=== PATIENT | male | born 1965 | race Hispanic/Latino ===

== ENCOUNTER 2018-02-14 12:02 | Inpatient (IN) | payer MEDICAID ==
[2018-02-14 12:03] VITALS: BMI 56.9
--- NOTE | 2018-02-14 12:36 | ED PDOC ---
Arrival/HPI - General Chief Complaint: Psychiatric Evaluation Time Seen by Provider: 02/14/18 12:07 Historian: Patient - History of Present Illness Narrative History of Present Illness (Text): 02/14/18 12:34 Patient is a 52 year old male, with past medical history of hypertension and COPD, presents to the Emergency department from [facility] for psychiatric admission today. Patient reportedly presented to [facility] yesterday stating he "didn't wanna live anymore" and has been thinking about jumping off the balcony of his [address] apartment. Patient currently denies any somatic complaints. Patient denies any fever, chills, nausea, vomiting, diarrhea, abdominal pain, headache, chest pain, shortness of breath, tremors, tingling or any other complaints. Patient presents to the Emergency department for admission to the psychiatrist's service was accepted by psychiatry service. 02/14/18 18:42 Time/Duration: Prior to Arrival Symptom Onset: Gradual Symptom Course: Unchanged Activities at Onset: Light Context: Other ([facility]) Past Medical History - Provider Review Nursing Documentation Reviewed: Yes - Infectious Disease Hx of Infectious Diseases: None - Cardiac Hx Hypertension: Yes - Pulmonary Hx Respiratory Disorders: Yes Hx Chronic Obstructive Pulmonary Disease (COPD): Yes - Neurological Hx Neurological Disorder: No HX Cerebrovascular Accident: No Hx Seizures: No - HEENT Hx HEENT Disorder: Yes Other/Comment: [place] both ears. wears glasses - Renal Hx Renal Disorder: No - Endocrine/Metabolic Hx Endocrine Disorders: No - Hematological/Oncological Hx Blood Disorders: No Hx Cancer: No - Integumentary Hx Dermatological Disorder: No - Musculoskeletal/Rheumatological Hx Musculoskeletal Disorders: Yes Hx Arthritis: Yes - Gastrointestinal Hx Gastrointestinal Disorders: Yes Hx Bowel Surgery: Yes Hx Gastritis: Yes Other/Comment: hernia repair - Genitourinary/Gynecological Hx Genitourinary Disorders: No Hx Sexually Transmitted Diseases: No - Psychiatric Hx Depression: Yes Hx Emotional Abuse: No Hx Physical Abuse: No Hx Sexual Abuse: No Hx Substance Use: No - Surgical History Other/Comment: shoulder surgery - Anesthesia Hx Anesthesia: Yes Hx Anesthesia Reactions: No - Suicidal Assessment Feels Threatened In Home Enviroment: No Family/Social History - Physician Review Nursing Documentation Reviewed: Yes Family/Social History: No Known Family HX Smoking Status: Current Some Days Smoker Hx Alcohol Use: Yes Frequency of alcohol use: Socially Hx Substance Use: No Substance used: Marijuana and 1/4 bag heroin a few days ago Allergies/Home Meds Allergies/Adverse Reactions: Allergies mayonnaise Allergy (Uncoded 01/31/18 17:02) SHORTNESS OF BREATH Review of Systems - Review of Systems Constitutional: absent: Fevers Eyes: absent: Vision Changes Respiratory: absent: SOB Cardiovascular: absent: Chest Pain Gastrointestinal: absent: Abdominal Pain, Diarrhea, Nausea, Vomiting Musculoskeletal: Back Pain (states chronic) Skin: absent: Rash Neurological: absent: Headache, Dizziness, Focal Weakness, Other (No tremors or tingling) Endocrine: absent: Polyuria Psychiatric: Depression, Suicidal Ideation. absent: Anxiety Physical Exam - Physical Exam Narrative Physical Exam (Text): 02/14/18 12:42 Head: Atraumatic. Normocephalic. Eyes: PERRL. EOMI. Conjunctivae are not pale. ENT: Mucous membranes are moist and intact. Neck: Supple. Full ROM. No meningeal signs. Cardiovascular: Regular rate. Regular rhythm. Pulmonary/Chest: No evidence of respiratory distress. Clear to auscultation bilaterally. Abdominal: Soft and non-distended. There is no tenderness. Back: No CVA tenderness. Mild paraspinal lumbar tenderness, no focal edema or erythema. Extremities: No edema. No cyanosis. No clubbing. Full range of motion in all extremities. No calf tenderness. Skin: Skin is warm and dry. No petechiae. No purpura. Neurological: Alert, awake, and oriented to person, place, time, and situation. Normal speech. No motor or sensory deficits. No facial droop. No nuchal rigidity. Psychiatric: Good eye contact. Reports depression and had expressed suicidal ideation. 02/14/18 18:44 Vital Signs Reviewed: Yes Vital Signs Temp Pulse Resp BP Pulse Ox 02/14/18 12:48 75 19 125/52 L 99 02/14/18 12:42 98 F Temperature: Afebrile Pulse: Regular Appearance: Positive for: Well-Appearing, Non-Toxic, Comfortable Mental Status: Positive for: Alert and Oriented X 3 Medical Decision Making ED Course and Treatment: 02/14/18 12:43 Impression: 52 year old male presents to the Emergency department for psychiatric admission. Plan: -- Reassess and disposition Prior Visits: Notes and results from previous visits were reviewed. Progress Notes: 02/14/18 12:43 Upon arrival to the Emergency department, patient's medical record was reviewed. Patient was medically cleared at [facility] Patient is currently calm and cooperative with no focal neurological deficits. Patient denies any headache, chest pain, shortness of breath, tremors, and is neurologically intact with no acute pain or discomfort. Patient admitted to [facility]. 02/14/18 18:45 - Medication Orders Current Medication Orders: Acetaminophen (Tylenol 325mg Tab) 650 mg PO Q6H PRN PRN Reason: Pain, moderate (4-7) Bupropion HCl (Wellbutrin Sr 150 Mg) 150 mg PO DAILY [facility] Last Admin: 02/14/18 13:50 Dose: 150 mg Gabapentin (Neurontin) 200 mg PO TID GRUPO PRN Reason: Protocol Last Admin: 02/14/18 18:15 Dose: 200 mg Lorazepam (Ativan) 1 mg PO AMHS PRN; Protocol PRN Reason: Anxiety Metoprolol Succinate (Toprol Xl) 25 mg PO BRK [facility] Last Admin: 02/14/18 13:50 Dose: 25 mg Multi-Ingredient Ointment (Prep-Hem) 1 ea TOP DAILY PRN PRN Reason: rectal itch Trazodone HCl (Desyrel) 50 mg PO HS PRN PRN Reason: Insomnia Discontinued Medications Lorazepam (Ativan) 1 mg PO ONCE ONE PRN Reason: Protocol Stop: 02/14/18 13:41 Last Admin: 02/14/18 14:02 Dose: 1 mg - Yoanibe Statement The provider has reviewed the documentation as recorded by the Jose Villalpando. All medical record entries made by the Jose were at my direction and personally dictated by me. I have reviewed the chart and agree that the record accurately reflects my personal performance of the history, physical exam, medical decision making, and the department course for this patient. I have also personally directed, reviewed, and agree with the discharge instructions and disposition. Disposition/Present on Arrival - Present on Arrival Any Indicators Present on Arrival: No History of DVT/PE: No History of Uncontrolled Diabetes: No Urinary Catheter: No History of Decub. Ulcer: No History Surgical Site Infection Following: None - Disposition Have Diagnosis and Disposition been Completed?: Yes Diagnosis: Depression Disposition: HOSPITALIZED Disposition Time: 13:10 Patient Plan: Admission Condition: FAIR
[2018-02-14] MEDS ORDERED: Hemorrohoidal Ointment (2 oz) TOP PRN (13:45)
[2018-02-14] MEDS: Metoprolol Succinate 25 mg XL Tab PO SCH (13:50)
[2018-02-14] MEDS: buPROPion SR 150 MG TABLET PO SCH (13:50)
--- NOTE | 2018-02-14 16:35 | PCM.BM ---
<RichardAntony - Last Filed: 02/14/18 16:25> Treatment Plan Problems - Problems identified on initial assessmt RISK FOR SUICIDE Date Initiated: 02/14/18 Time Initiated: 15:00 Assessment reference: HP, NA, Other Status: Active INEFFECTUVE COPING Date Initiated: 02/14/18 Time Initiated: 16:36 Assessment reference: HP, NA, Other Status: Active MEDS NONADHERENCE Date Initiated: 02/14/18 Time Initiated: 16:37 Assessment reference: HP, NA, Other Treatment assets and liabiliti Patient Assests: adapts well, cooperative, resourceful, ADL independent, negotiates basic needs, cognitively intact Patient Liabilities: substance abuse, medical problems - Milieu Protocol Maintain good personal hygiene: daily Encourage regular showers, daily Remind patient to perform daily oral care, daily Assist patient to perform ADL's Maintain personal safety: daily Educate patient to report safety concerns to staff, daily Monitor environment for contraband/sharps Medication safety: Monitor for expected outcome, potential side effects: daily, Assess barriers to learning: daily, Assess readiness for medication education: daily Discharge/Continuing Care - Education Needs Education Needs: Patient Medication, Patient Diagnosis/Disease Process, Patient Coping Skills, Patient Activities of Daily Living, Patient Uses of Medical Equipment, Patient Health Practices/Safety - Discharge Discharge Criteria: Free of Suicidal thoughts, Free of Homicidal thoughts, Free of paranoid thoughts, Normal sleep pattern Discharge to:: Home <Herbert Gallardo - Last Filed: 02/15/18 10:54> - Diagnosis (1) Depression Status: Acute Interventions: group, milieu and supportive tx * Wellbutrin SR 150 mg po daily for depression * Trazodone 100 mg po HS for depression and off-label for insomnia 02/15/18 10:54 (2) Opioid use disorder, severe, dependence Status: Acute Interventions: group, milieu and supportive tx * Wellbutrin SR 150 mg po daily for depression * Trazodone 100 mg po HS for depression and off-label for insomnia 02/15/18 10:54 <Tea Hall - Last Filed: 02/16/18 16:25> Family Contact Family involvement: Famliy/SO not involved
--- NOTE | 2018-02-14 21:01 | PN ---
DATE: 02/14/2018 SUBJECTIVE: I was called to the Psychiatric floor for medical consult. This is a 52-year-old white male who presents to the emergency room stating that he does not want to live anymore. He was thinking about [facility]. He is very stressed. He is very worried. He barely could have a conversation with me. PAST MEDICAL HISTORY: Hypertension, COPD, arthritis. He has had gastritis. He has hernia surgery. He had bowel surgery, shoulder surgery. FAMILY HISTORY: No known family history. SOCIAL HISTORY: He still smokes cigarettes. Still does alcohol. He smokes marijuana and heroin most days. ALLERGIES: HE GIVES ALLERGIES TO [place]. REVIEW OF SYSTEMS: He is quite upset, shakenly looking at me. He is quite nervous. No short of breath or chest pain. No abdominal pain, diarrhea, nausea, or vomiting. No problems urinating. No skin issues. No headache. Very worried, very sad, very depressed. PHYSICAL EXAMINATION: VITAL SIGNS: He has 98 temperature, 85 pulse, 121/82 blood pressure, 19 respiratory rate, and he has a 98% O2 sat on room air. HEENT: Head: Atraumatic, normocephalic. Extraocular muscles are intact. Pupils are equal and reactive to light. Throat is moist. NECK: Supple. No JVD. HEART: Regular rate. LUNGS: Decreased breath sounds, but clear to auscultation. ABDOMEN: Soft, nontender. Positive bowel sounds. No guarding, no rebound. No CVA tenderness. EXTREMITIES: No edema. Fair range of motion. SKIN: For the most part is warm and dry. No apparent rashes or ulcers. NEUROLOGICAL: Alert, oriented, very anxious. Bad eye contact. Very worried, nervous behavior. Seems very upset. Difficult for him to talk to me. LABORATORY DATA: He had no lab tests done. I will order some lab tests once he will be fine. MEDICATIONS: He is on multiple meds, Ativan, Desyrel, Neurontin, Toprol, Wellbutrin, and Tylenol. ASSESSMENT AND PLAN: We will keep a close eye on him. We will check his labs and see if he has suicidal ideation, drug abuse, hypertension, chronic obstructive pulmonary disease. Nima Mckeon DO [facility] # [id number] LIZ
[2018-02-15 07:12] LABS: HEMOGLOBIN 14.8 g/dL (14.0-18.0); MEAN CORPUSCULAR HGB CONC 35.6 g/dl (31.0-37.0); RBC 4.78 10^6/uL (3.5-6.1); RED CELL DISTRIBUTION WIDTH 13.2 % (11.5-14.5); WHITE BLOOD COUNT 10.2 10^3/ul (4.5-11.0)
[2018-02-15] MEDS: Metoprolol Succinate 25 mg XL Tab PO SCH (07:16)
[2018-02-15 07:22] LABS: ALB/GLOB RATIO 1.3 (1.1-1.8); ALBUMIN 4.5 g/dL (3.0-4.8); ALT/SGPT 32 U/L (7-56); AST/SGOT 22 U/L (17-59); BLOOD UREA NITROGEN 19 mg/dL (7-21); CALCIUM 9.7 mg/dL (8.4-10.5); GFR AFRICAN-AMERICAN > 60; GFR NON-AFRICAN AMERICAN > 60; GLUCOSE,FASTING 102 mg/dL (65-110); HDL CHOLESTEROL 30 mg/dL (29-60)
[2018-02-15 07:32] LABS: LDL CHOLESTEROL 109 mg/dL (0-129)
[2018-02-15 07:42] LABS: FREE T4 1.44 ng/dL (0.78-2.19)
[2018-02-15] MEDS: buPROPion SR 150 MG TABLET PO SCH (08:46)
--- NOTE | 2018-02-15 10:53 | PCM.PSYCH ---
Initial Psychiatric Evaluation - Initial Psychiatric Evaluation Type of Admission: Voluntary History of Present Illness and Precipitating Events: Patient is 52-year-old single male with a psychiatric history of Depression, Opiate dependency, MJA use, multiple admissions-most recently at [facility] 01/31/18-02/06/18, multiple suicide attempts vs gestures, noncompliance with outpatient treatment and medications who was BIB EMS to [facility] due to reported depression and wishes in context of ongoing opiate use and continued grief over his mother's in Fall 2015. Patient reportedly had thoughts of jumping off his balcony, roof or bridge. Patient has been in good behavioral control since transfer to [facility] yesterday, 02/14/18. I met with him at bedside this morning. He appears fairly groomed and related. Oriented x3. Reports ongoing symptoms of low mood and energy, anhedonia, hopelessness, poor sleep and appetite since discharge from [facility] a week ago. Endorses visual hallucinations of seeing his mother. Patient indicates that he is no longer suicidal. There have been no behavioral issues over the weekend. PSYCHIATRIC HISTORY Patient reports at least 10 prior admissions, most recently at [facility] 01/31/18-02/06/18. Patient was not compliant with discharge medications of Wellbutrin SR 150 mg po daily and Trazodone 200 mg po HS. Patient was given diagnosis of Major Depressive Disorder, r/o Substance Induced Mood Disorder; Opioid Use Disorder; Cannabis Use Disorder Patient reports a history of "many" suicide attempts vs gestures. Most recently wanted to jump off his roof "where 15 people have already committed suicide". Prior medication trial of Effexor, this medication gave him headaches. SOCIAL HISTORY Born and raised in [place]. Single. No children. Resides with his sister. Graduated high school. 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 Addicted to opiates >11 years. Started using intranasal heroin x2 years ago after his mother in Fall 2015. Continues to use opiates however he is not forthcoming about his current use. Patient also smokes MJA to help with pain. He smokes half pack of tobacco daily. He was apprised of the morbidity and mortality risks of continued tobacco use. Deferred on nicotine patch when offered to him. Patient hasn't had alcohol in over 20 years. Current Medications: Active Medications Generic Name Dose Route Start Last Admin Trade Name Freq PRN Reason Stop Dose Admin Acetaminophen 650 mg 02/14/18 14:36 02/15/18 04:59 Tylenol 325mg Tab PO 650 mg Q6H PRN Administration Pain, moderate (4-7) Bupropion HCl 150 mg 02/14/18 13:45 02/14/18 13:50 Wellbutrin Sr 150 Mg PO 150 mg DAILY GRUPO Administration Gabapentin 200 mg 02/14/18 18:00 02/14/18 18:15 Neurontin PO 200 mg TID GRUPO Administration Protocol Lorazepam 1 mg 02/14/18 13:38 Ativan PO AMHS PRN Anxiety Protocol Metoprolol Succinate 25 mg 02/14/18 13:45 02/14/18 13:50 Toprol Xl PO 25 mg BRK GRUPO Administration Multi-Ingredient Ointment 1 ea 02/14/18 13:45 Prep-Hem TOP DAILY PRN rectal itch Trazodone HCl 50 mg 02/14/18 13:41 Desyrel PO HS PRN Insomnia Past Psychiatric History - Past Psychiatric History Pertinent Medical Hx (Current Medical&Sleep Prob, Allergies): Allergies Allergy/AdvReac Type Severity Reaction Status Date / Time [facility] Allergy SHORTNESS Uncoded 01/31/18 17:02 OF BREATH Gabapentin [Neurontin] 400 mg PO TID #90 cap 02/06/18 Metoprolol Succinate XL [Toprol XL] 25 mg PO QPM #30 tab 02/06/18 Phenylephrine [Preparation H Suppositories] 1 supp MO BID sup 02/06/18 buPROPion SR [Wellbutrin SR 150 MG] 150 mg PO DAILY #30 tab 02/06/18 hydrALAZINE [Apresoline] 25 mg PO Q12 #60 tab 02/06/18 traZODone [Desyrel] 200 mg PO HS #60 tab 02/06/18 DSM 5 DX - DSM 5 DSM 5 Diagnosis: Major Depression Opiate Dependency, Substance induced mood disorder MJA abuse - Recommended/Plan of Treatment Treatment Recommendations and Plan of Treatment: * group, milieu and supportive tx * Wellbutrin SR 150 mg po daily for depression * Trazodone 100 mg po HS for depression and off-label for insomnia * Ativan 1 mg AMHS prn: anxiety * Appreciate f/u by Dr. Mckeon on 02/14/18 * Vitals reviewed and noted below: 02/14/18 02/14/18 02/15/18 12:52 16:00 07:13 Temperature 98 F Pulse Rate 85 67 69 Respiratory 19 22 Rate Blood Pressure 121/82 139/100 H 137/103 H 02/15/18 07:16 Temperature Pulse Rate 69 Respiratory Rate Blood Pressure 137/103 H Summarized lab results from [facility] 02/13/18 WBC 11.3 HGB/HCT 13.7L/40.5L PLT 332 CHEM 14 WNL BAL <10 UDS +THC, +OPIATES - Smoking Cessation Smoking Cessation Initiated: Yes Reason for not providing: Patient deferred
[2018-02-15] MEDS: Lidocaine 5% Patch TD SCH (15:29)
[2018-02-16] MEDS: Lidocaine 5% Patch TD SCH (08:19)
[2018-02-16] MEDS: Metoprolol Succinate 25 mg XL Tab PO SCH (08:19)
[2018-02-16] MEDS: buPROPion SR 150 MG TABLET PO SCH (08:19)
--- NOTE | 2018-02-16 09:20 | PN ---
DATE: 02/15/2018 SUBJECTIVE: I saw him this morning. He is walking. He is having low back pain. He is doing a little bit better with his anxiety and his suicidal thoughts. MEDICATIONS: He is on Ativan; Desyrel; Lidoderm patch, now I added that to his low back pain; Neurontin; hemorrhoidal cream; metoprolol; Tylenol and BuSpar. PHYSICAL EXAMINATION VITAL SIGNS: He has a 98 temperature; 69 pulse; 137/103 blood pressure, I am going to put him on blood pressure meds, 22 respiratory rate; 98% O2 sat on room air. HEENT: His head is atraumatic, normocephalic. HEART: Regular rate. LUNGS: Decreased breath sounds, but clear. ABDOMEN: Soft, nontender. EXTREMITIES: No edema. LABORATORY DATA: He has a 10.2 white count, hemoglobin, 41.6 hematocrit with a 347 platelets. Sodium 143, potassium of 4.6, BUN 90, creatinine 8.9, GFR is greater than 60, sugar is 102, calcium is 9.7, total bilirubin is 0.5, AST is 22, ALT is 32, alkaline phosphatase 90, total protein 7.9, triglycerides of 102, cholesterol is 164. TSH is 0.24, I will repeat that tomorrow, could be stress related. I am going to add a blood pressure pill and a TSH for tomorrow. I encouraged him to participate in groups, take his medications as per Psychiatry and as per their adjustment and hopefully, his back better. Nima Mckeon DO [facility]
--- NOTE | 2018-02-16 11:54 | PN ---
DATE: 02/16/2018 SUBJECTIVE: I saw him in the chair in a TV room. He is very upset this morning. He is not sleeping well at all. He states he is going to sleep with Xanax, but I am not giving to him, we are giving him other things. He is very upset about that. He wants the Xanax at nighttime. His medication list consists of Ativan at nighttime, I added Catapres for his blood pressure, Desyrel, Lidoderm patch for his back pain, Neurontin and Norvasc for blood pressure, hemorrhoidal cream, Toprol for blood pressure, Tylenol, Vistaril and Wellbutrin. He is very upset this morning; over and over again, he is telling me he needs Xanax. PHYSICAL EXAMINATION: VITAL SIGNS: He has 98 temperature; 65 pulse; blood pressures have been 139/100, 137/103 and 153/99, I added clonidine; respiratory rate 22; 98% O2 sat on room air. HEENT: Head is atraumatic, normocephalic. HEART: Regular rate. LUNGS: Decreased breath sounds, but clear. ABDOMEN: Soft. EXTREMITIES: No edema. LABORATORY DATA: He has a 10.2 white count, 14.8 hemoglobin, 347 platelets yesterday. Sodium 143, potassium 4.6, BUN 19, creatinine 0.7, GFR is greater than 60, sugar is 102, AST is 22, ALT is 32, alkaline phosphatase 90. TSH went up to 0.4, a little bit better. I still think it is a stress reaction. I will do another TSH tomorrow for his regular blood test. I added clonidine to his Norvasc, I hope he gets a usama sleep tonight. Maybe Psych can change his Ativan to Xanax which he desperately wants and is very angry about it as per Psychiatry. We are medicines for his blood pressure. Nima Mckeon DO MTDD
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
[2018-02-17 06:26] LABS: HEMOGLOBIN 13.3 g/dL (14.0-18.0); MEAN CORPUSCULAR HEMOGLOBIN 30.1 pg (25.0-35.0); MEAN CORPUSCULAR HGB CONC 34.2 g/dl (31.0-37.0); MEAN PLATELET VOLUME 10.1 fl (7.0-11.0); RBC 4.42 10^6/uL (3.5-6.1); RED CELL DISTRIBUTION WIDTH 13.3 % (11.5-14.5); WHITE BLOOD COUNT 13.9 10^3/ul (4.5-11.0)
[2018-02-17 06:53] LABS: ALB/GLOB RATIO 1.3 (1.1-1.8); ALBUMIN 3.9 g/dL (3.0-4.8); ALT/SGPT 29 U/L (7-56); AST/SGOT 20 U/L (17-59); BLOOD UREA NITROGEN 26 mg/dL (7-21); CALCIUM 9.6 mg/dL (8.4-10.5); GFR AFRICAN-AMERICAN > 60; GFR NON-AFRICAN AMERICAN > 60
[2018-02-17] MEDS: Lidocaine 5% Patch TD SCH (09:14)
[2018-02-17] MEDS: Metoprolol Succinate 25 mg XL Tab PO SCH (09:14)
[2018-02-17] MEDS: buPROPion SR 150 MG TABLET PO SCH (09:15)
--- NOTE | 2018-02-17 09:41 | PN ---
DATE: 02/17/2018 SUBJECTIVE: He is very upset this morning. He is on Xanax and he wants Ativan and he is very upset about that. He states he has lots of complaints against us. PHYSICAL EXAMINATION: VITAL SIGNS: He has 97.2 temp, 60 pulse, 118/81 blood pressure, 20 respiratory rate. HEENT: His head is atraumatic, normocephalic. HEART: Regular rate. LUNGS: Decreased breath sounds, but clear. ABDOMEN: Soft. EXTREMITIES: No edema. LABORATORY DATA: He has a 13.9 white count and went up, 13.3 hemoglobin, 38.9 hematocrit with 278 platelets. Sodium 145, potassium of 4.5, BUN 26, creatinine 0.8. GFR is greater than 60, sugar is 97, calcium is 9.6, total bili is 0.2, AST 20, ALT is 29, alkaline phosphatase 75. The TSH go back to normal, it is 0.69. We will repeat a CBC tomorrow to watch his white count. I will roll changer his Xanax to Ativan at low dose, see if that might make him less angry. We are also going to do a urinalysis on him to make sure we are not missing any infection. We will watch him closely. He is here for suicidal ideation, COPD, IV drug abuse, back pain. Nima Mckeon DO MTDD
--- NOTE | 2018-02-17 15:22 | PCM.PYCHPN ---
Psychiatric Progress Note - Psychiatric Progress Note Patient seen today, length of contact: 30 minutes Patient Chief Complaint: "I am annoyed" Problems Identified/Issues Discussed: Suicide/ homicide prevention, past psychiatric h/o, current psychiatric symptoms , medical problems, risk/benefits and alternatives of medications, medications compliance, coping strategies, substance abuse h/o, relapse prevention, importance of follow up with psychiatrist and therapist, discharge plan. Medical Problems: HNT, chronic back pain Diagnostic Results: 02/15/18 06:30 02/15/18 06:30 Lab Results 02/16/18 07:00: TSH 3rd Generation 0.41 L 02/15/18 06:30: WBC 10.2, RBC 4.78, Hgb 14.8, Hct 41.6 L, MCV 87.0, MCH 31.0, MCHC 35.6, RDW 13.2, Plt Count 347, MPV 10.0 02/15/18 06:30: RPR Nonreactive 02/15/18 06:30: Free T4 1.44, TSH 3rd Generation 0.24 L 02/15/18 06:30: Sodium 143, Potassium 4.6, Chloride 106, Carbon Dioxide 24, Anion Gap 17, BUN 19, Creatinine 0.7 L, Est GFR ( Amer) > 60, Est GFR ( Non-Af Amer) > 60, Random Glucose 102, Fasting Glucose 102, Calcium 9.7, Total Bilirubin 0.5, AST 22, ALT 32, Alkaline Phosphatase 90, Total Protein 7.9, Albumin 4.5, Globulin 3.4, Albumin/Globulin Ratio 1.3, Triglycerides 102, Cholesterol 164, LDL Cholesterol Direct 109, HDL Cholesterol 30 Vital Signs Temp Pulse Resp BP Pulse Ox 02/16/18 08:49 65 153/99 H 02/16/18 08:19 65 153/99 H 02/16/18 08:17 65 153/99 H 02/15/18 16:00 65 153/99 H 02/15/18 07:16 69 137/103 H 02/15/18 07:13 69 22 137/103 H 02/14/18 16:00 67 139/100 H 02/14/18 12:52 98 F 85 19 121/82 98 02/14/18 12:48 75 19 125/52 L 99 02/14/18 12:42 98 F DSM 5 Symptoms Update: Patient is 52-year-old single male with a psychiatric history of Depression, Opiate dependency, MJA use, multiple admissions-most recently at [facility] 01/31/18-02/06/18, multiple suicide attempts vs gestures, noncompliance with outpatient treatment and medications who was BIB EMS to [facility] due to reported depression and wishes in context of ongoing opiate use and continued grief over his mother's in Fall 2015. Patient reportedly had thoughts of jumping off his balcony, roof or bridge. as per report from the staff patient has been in good behavioral control since transfer to [facility] 02/14/18. pt was seen at the treatment team meeting room today, as per staff pt was agitated, was threatening, was disrespectful. at the same time no physical aggression. acceptable personal hygiene, pt is mancia and irritable, reported poor sleep but good appetite. h/o Opioid Use Disorder; Cannabis Use Disorder, but denied using recently, but admitted to smoke marijuana. as per staff pt was compliant with the medications. Impression: DSM 5 Diagnosis: Major Depression Opiate Dependency, Substance induced mood disorder MJA abuse Medication Change: Yes (Xanax 3 times a day as needed) Medical Record Reviewed: Yes Mental Status Examination - Cognitive Function Orientation: Person Memory: Intact Attention: Poor Concentration: Poor Association: WNL Fund of Knowledge: Poor (baseline) - Mood Mood: Depressed, Anxious - Affect Affect: Constricted - Formal Thought Process Formal Thought Process: No Impairment - Suicidal Ideation Suicidal Ideation: No - Homicidal Ideation Homicidal Ideation: No Goal/Treatment Plan - Goal/Treatment Plan Need for Continued Stay: Remain at risks for inpatient hospitalization, Severe depression anxiety, Discharge may exacerbated symptoms, Severe functional impairment Progress Toward Problem(s) and Goals/Treatment Plan: Milieu/structure/supportive therapy Medical consult appreciated, see medical team note for more detailed info SW consultation for discharge plan and social issues wellbutrin xanax started trazodone d/c remeron started Family involvement Follow up on labs Will monitor closely Pt was educated about risk/benefits and alternatives of medications, coping strategies (safety plan, suicide prevention), relapse prevention, importance of follow up with psychiatrist and therapist, stay away from drugs/alcohol/smoking Estimated Date of D/C: 02/20/18
[2018-02-18 07:55] LABS: HEMOGLOBIN 13.4 g/dL (14.0-18.0); MEAN CELL VOLUME 88.5 fl (80.0-105.0); MEAN CORPUSCULAR HEMOGLOBIN 30.8 pg (25.0-35.0); MEAN CORPUSCULAR HGB CONC 34.8 g/dl (31.0-37.0); MEAN PLATELET VOLUME 10.1 fl (7.0-11.0); RBC 4.35 10^6/uL (3.5-6.1); RED CELL DISTRIBUTION WIDTH 13.2 % (11.5-14.5)
[2018-02-18 08:09] LABS: ALB/GLOB RATIO 1.3 (1.1-1.8); ALT/SGPT 26 U/L (7-56); AST/SGOT 20 U/L (17-59); BLOOD UREA NITROGEN 23 mg/dL (7-21); CALCIUM 9.6 mg/dL (8.4-10.5); GFR AFRICAN-AMERICAN > 60; GFR NON-AFRICAN AMERICAN > 60
[2018-02-18] MEDS: Metoprolol Succinate 25 mg XL Tab PO SCH (08:11)
[2018-02-18] MEDS: Lidocaine 5% Patch TD SCH (08:12)
[2018-02-18] MEDS: buPROPion SR 150 MG TABLET PO SCH (08:12)
--- NOTE | 2018-02-18 09:47 | PN ---
DATE: 02/18/2018 SUBJECTIVE: Yesterday when I saw him, he was very upset that he was on Xanax and wanted Ativan to the point where he was angry and mean. I have changed him to Ativan, discussed it with the psychiatrist this morning. It was all about the Xanax and I will see if he is back on the Xanax. He is comfortable in bed, slept well. He is on Catapres, Lidoderm, Neurontin, Norvasc, , Remeron, Toprol, Tylenol, Zestril, Wellbutrin and now back on Xanax. OBJECTIVE: VITAL SIGNS: Temperature 97.8, 65 pulse, 117/78 blood pressure, 20 respiratory rate. HEENT: Head is atraumatic, normocephalic. HEART: Regular rate. LUNGS: Decreased breath sounds, but clear. ABDOMEN: Soft. EXTREMITIES: No edema. DATA: Last labs from today; 11 white count and normal, 13.4 hemoglobin, 38.5 hematocrit with 278 platelets. Sodium 145, potassium 4.5, BUN 23, creatinine 0.8. GFR is greater than 60. Sugar is 93. Calcium is 9.6, total bili is 0.4, AST 20, ALT is 26, alkaline phosphatase 78, total protein 7.2. His TSH is now normal at 0.69. Continue aggressive treatment as per Psychiatry. Medically, I think he is coming around. Continue to adjust and manage his medications. We will follow. This is a patient who has got diabetes, hypertension, COPD. He did have accelerated hypertension, IV drug abuse, high white count, back pain. He was suicidal when he came in. Nima Mckeon DO MTDAudrey
--- NOTE | 2018-02-18 15:08 | PCM.PYCHPN ---
Psychiatric Progress Note - Psychiatric Progress Note Patient seen today, length of contact: 30 minutes Patient Chief Complaint: "I am just depressed, it is a holiday time, my mom used to decorate our house, I am very depressed, at times I could hear her voice, I think it is just memories" Problems Identified/Issues Discussed: Suicide/ homicide prevention, past psychiatric h/o, current psychiatric symptoms , medical problems, risk/benefits and alternatives of medications, medications compliance, coping strategies, substance abuse h/o, relapse prevention, importance of follow up with psychiatrist and therapist, discharge plan. Medical Problems: HNT, chronic back pain Diagnostic Results: 02/15/18 06:30 02/15/18 06:30 Lab Results 02/16/18 07:00: TSH 3rd Generation 0.41 L 02/15/18 06:30: WBC 10.2, RBC 4.78, Hgb 14.8, Hct 41.6 L, MCV 87.0, MCH 31.0, MCHC 35.6, RDW 13.2, Plt Count 347, MPV 10.0 02/15/18 06:30: RPR Nonreactive 02/15/18 06:30: Free T4 1.44, TSH 3rd Generation 0.24 L 02/15/18 06:30: Sodium 143, Potassium 4.6, Chloride 106, Carbon Dioxide 24, Anion Gap 17, BUN 19, Creatinine 0.7 L, Est GFR ( Amer) > 60, Est GFR ( Non-Af Amer) > 60, Random Glucose 102, Fasting Glucose 102, Calcium 9.7, Total Bilirubin 0.5, AST 22, ALT 32, Alkaline Phosphatase 90, Total Protein 7.9, Albumin 4.5, Globulin 3.4, Albumin/Globulin Ratio 1.3, Triglycerides 102, Cholesterol 164, LDL Cholesterol Direct 109, HDL Cholesterol 30 Vital Signs Temp Pulse Resp BP Pulse Ox 02/16/18 08:49 65 153/99 H 02/16/18 08:19 65 153/99 H 02/16/18 08:17 65 153/99 H 02/15/18 16:00 65 153/99 H 02/15/18 07:16 69 137/103 H 02/15/18 07:13 69 22 137/103 H 02/14/18 16:00 67 139/100 H 02/14/18 12:52 98 F 85 19 121/82 98 02/14/18 12:48 75 19 125/52 L 99 02/14/18 12:42 98 F DSM 5 Symptoms Update: Patient is 52-year-old single male with a psychiatric history of Depression, Opiate dependency, MJA use, multiple admissions-most recently at [facility] 01/31/18-02/06/18, multiple suicide attempts vs gestures, noncompliance with outpatient treatment and medications who was BIB EMS to [facility] due to reported depression and wishes in context of ongoing opiate use and continued grief over his mother's in Fall 2015. Patient reportedly had thoughts of jumping off his balcony, roof or bridge. as per report from the staff patient has been in good behavioral control since transfer to [facility], at times annoyed and disrespectful, but no agitation or aggression. pt was seen at the day treatment area, pt appeared to be depressed, flat affect , reported to fell depressed, hopeless, passive wish to be , and "be with my mom", pt said at the holiday season he would feel this way. at the same time pt said his anxiety is "better, I am calmer". acceptable personal hygiene, pt is mancia and irritable, reported seep and appetite "better" h/o Opioid Use Disorder; Cannabis Use Disorder, but denied using recently, but admitted to smoke marijuana. as per staff pt was compliant with the medications. Impression: DSM 5 Diagnosis: Major Depression Opiate Dependency, Substance induced mood disorder MJA abuse Medication Change: Yes (Xanax 3 times a day as needed) Medical Record Reviewed: Yes Mental Status Examination - Cognitive Function Orientation: Person Memory: Intact Attention: Poor Concentration: Poor Association: WNL Fund of Knowledge: Poor (baseline) - Mood Mood: Depressed, Anxious - Affect Affect: Constricted - Formal Thought Process Formal Thought Process: No Impairment - Suicidal Ideation Suicidal Ideation: No - Homicidal Ideation Homicidal Ideation: No Goal/Treatment Plan - Goal/Treatment Plan Need for Continued Stay: Remain at risks for inpatient hospitalization, Severe depression anxiety, Discharge may exacerbated symptoms, Severe functional impairment Progress Toward Problem(s) and Goals/Treatment Plan: Milieu/structure/supportive therapy Medical consult appreciated, see medical team note for more detailed info SW consultation for discharge plan and social issues wellbutrin increased xanax will be continued remeron started Family involvement Follow up on labs Will monitor closely Pt was educated about risk/benefits and alternatives of medications, coping strategies (safety plan, suicide prevention), relapse prevention, importance of follow up with psychiatrist and therapist, stay away from drugs/alcohol/smoking Estimated Date of D/C: 02/20/18
[2018-02-19] MEDS: Lidocaine 5% Patch TD SCH (08:31)
[2018-02-19] MEDS: buPROPion SR 150 MG TABLET PO SCH (08:33)
[2018-02-19] MEDS: Metoprolol Succinate 25 mg XL Tab PO SCH (08:34)
[2018-02-19 12:40] LABS: URINE BILIRUBIN NEGATIVE (NEGATIVE); URINE BLOOD TRACE-INTACT (NEGATIVE); URINE GLUCOSE (UA) NEGATIVE (NEGATIVE); URINE LEUKOCYTE ESTERASE NEGATIVE Leu/uL (NEGATIVE); URINE PROTEIN TRACE mg/dL (<30 mg/dL); URINE UROBILINOGEN 0.2 E.U./dL (<1 E.U./dL)
[2018-02-19 12:50] LABS: URINE APPEARANCE CLEAR (CLEAR); URINE COLOR YELLOW (YELLOW)
[2018-02-19 13:15] LABS: URINE BACTERIA MANY (NEG); URINE WBC 0 - 2 /hpf (0-6)
--- NOTE | 2018-02-19 14:22 | PN ---
DATE: 02/19/2018 SUBJECTIVE: I saw him sitting in a chair. He is comfortable. He is very upset. He wants to get his in between meals because he has H. pylori and I brought him over, discussed it with the nurses at the desk and they can have food in between meals if he wants. MEDICATIONS: He is on Catapres, Lidoderm, Lyrica, Neurontin, Norvasc, Remeron, Toprol, Tylenol, Vistaril, Wellbutrin, Xanax. PHYSICAL EXAMINATION VITAL SIGNS: 98.7 temperature, 66 pulse, 104/62 blood pressure, 19 respiratory rate. HEENT: His head is atraumatic, normocephalic. HEART: Regular rate. LUNGS: Clear to auscultation. ABDOMEN: Soft. EXTREMITIES: No edema. ASSESSMENT AND PLAN: He has got numerous issues while he is here. He has got suicidal ideation. He has back pain, hypertension, chronic obstructive pulmonary disease, accelerate hypertension, IV drug abuse, high white count and he has been doing well. His white count is down to 11. SMA-20 is good. His BUN is 23. He is getting his medications. Blood pressure is good at 104/62. Overall, I am happy with it. We will continue with aggressive treatment and care. Encouragement in participating with activities and what Psychiatry wants to do and he can eat food in between meals. Nima Mckeon DO MTDAudrey
--- NOTE | 2018-02-19 17:12 | PCM.PYCHPN ---
Psychiatric Progress Note - Psychiatric Progress Note Patient seen today, length of contact: 30 minutes Patient Chief Complaint: "I am just depressed" Problems Identified/Issues Discussed: Suicide/ homicide prevention, past psychiatric h/o, current psychiatric symptoms , medical problems, risk/benefits and alternatives of medications, medications compliance, coping strategies, substance abuse h/o, relapse prevention, importance of follow up with psychiatrist and therapist, discharge plan. Medical Problems: HNT, chronic back pain Diagnostic Results: 02/15/18 06:30 02/15/18 06:30 Lab Results 02/16/18 07:00: TSH 3rd Generation 0.41 L 02/15/18 06:30: WBC 10.2, RBC 4.78, Hgb 14.8, Hct 41.6 L, MCV 87.0, MCH 31.0, MCHC 35.6, RDW 13.2, Plt Count 347, MPV 10.0 02/15/18 06:30: RPR Nonreactive 02/15/18 06:30: Free T4 1.44, TSH 3rd Generation 0.24 L 02/15/18 06:30: Sodium 143, Potassium 4.6, Chloride 106, Carbon Dioxide 24, Anion Gap 17, BUN 19, Creatinine 0.7 L, Est GFR ( Amer) > 60, Est GFR ( Non-Af Amer) > 60, Random Glucose 102, Fasting Glucose 102, Calcium 9.7, Total Bilirubin 0.5, AST 22, ALT 32, Alkaline Phosphatase 90, Total Protein 7.9, Albumin 4.5, Globulin 3.4, Albumin/Globulin Ratio 1.3, Triglycerides 102, Cholesterol 164, LDL Cholesterol Direct 109, HDL Cholesterol 30 Vital Signs Temp Pulse Resp BP Pulse Ox 02/16/18 08:49 65 153/99 H 02/16/18 08:19 65 153/99 H 02/16/18 08:17 65 153/99 H 02/15/18 16:00 65 153/99 H 02/15/18 07:16 69 137/103 H 02/15/18 07:13 69 22 137/103 H 02/14/18 16:00 67 139/100 H 02/14/18 12:52 98 F 85 19 121/82 98 02/14/18 12:48 75 19 125/52 L 99 02/14/18 12:42 98 F DSM 5 Symptoms Update: Patient is 52-year-old single male with a psychiatric history of Depression, Opiate dependency, MJA use, multiple admissions-most recently at [facility] 01/31/18-02/06/18, multiple suicide attempts vs gestures, noncompliance with outpatient treatment and medications who was BIB EMS to [facility] due to reported depression and wishes in context of ongoing opiate use and continued grief over his mother's in Fall 2015. Patient reportedly had thoughts of jumping off his balcony, roof or bridge. as per report from the staff patient has been in good behavioral control since transfer to [facility] at times annoyed and disrespectful, but no agitation or aggression. pt was seen at the day treatment area, pt appeared to be depressed, flat affect , reported to fell depressed, hopeless, passive wish to be , but pt is more hopeful for the future "my sister is coming back on Friday, she will watch for me..." pt said at the holiday season he would feel this way. at the same time pt said his anxiety is "better, I am calmer". acceptable personal hygiene, pt is mancia and irritable, reported seep and appetite "better" h/o Opioid Use Disorder; Cannabis Use Disorder, but denied using recently, but admitted to smoke marijuana. as per staff pt was compliant with the medications. Impression: DSM 5 Diagnosis: Major Depression Opiate Dependency, Substance induced mood disorder MJA abuse Medication Change: Yes (Xanax 3 times a day as needed) Medical Record Reviewed: Yes Mental Status Examination - Cognitive Function Orientation: Person Memory: Intact Attention: Poor Concentration: Poor Association: WNL Fund of Knowledge: Poor (baseline) - Mood Mood: Depressed, Anxious - Affect Affect: Constricted - Formal Thought Process Formal Thought Process: No Impairment - Suicidal Ideation Suicidal Ideation: No - Homicidal Ideation Homicidal Ideation: No Goal/Treatment Plan - Goal/Treatment Plan Need for Continued Stay: Remain at risks for inpatient hospitalization, Severe depression anxiety, Discharge may exacerbated symptoms, Severe functional impairment Progress Toward Problem(s) and Goals/Treatment Plan: Milieu/structure/supportive therapy Medical consult appreciated, see medical team note for more detailed info SW consultation for discharge plan and social issues wellbutrin increased xanax will be continued remeron started Family involvement Follow up on labs Will monitor closely Pt was educated about risk/benefits and alternatives of medications, coping strategies (safety plan, suicide prevention), relapse prevention, importance of follow up with psychiatrist and therapist, stay away from drugs/alcohol/smoking Estimated Date of D/C: 02/20/18
[2018-02-20] MEDS: Lidocaine 5% Patch TD SCH (07:56)
[2018-02-20] MEDS: buPROPion SR 150 MG TABLET PO SCH (07:59)
[2018-02-20] MEDS: Metoprolol Succinate 25 mg XL Tab PO SCH (07:59)
--- NOTE | 2018-02-20 14:02 | PN ---
DATE: 02/20/2018 SUBJECTIVE: I saw Dom in his room. He took a shower. He is feeling much better. Mentally and physically, he is in good spirits. He wants to make sure he can eat his snacks when he can in between his meals. He is on Catapres, Lidoderm, Neurontin, Norvasc, multi ingredient ointment, Remeron, Toprol, Tylenol, Vistaril, Wellbutrin, and Xanax. OBJECTIVE: VITAL SIGNS: Temperature 97.4, 65 pulse, 123/84 blood pressure, 18 respiratory rate. HEENT: Head is atraumatic and normocephalic. HEART: Regular rate. LUNGS: Clear to auscultation. ABDOMEN: Soft. EXTREMITIES: No edema. LABORATORY DATA: He has 11,000 white count, 13.4 hemoglobin, 278 platelets. He has 145 sodium. BUN is 23, creatinine 0.8. GFR is greater than 60. Sugar is 93. Calcium 9.6. AST is 20, ALT is 26, alk phos 78. Last TSH was 0.69, which was good. He did have urinary tract infection. He is on clonidine. I will put him on medications for urinary tract infection, put on nitrofurantoin. We will continue with aggressive treatment as per Psychiatry. I encouraged him to drink his fluids, take his medications, participate. Nima Mckeon DO
--- NOTE | 2018-02-20 14:19 | PCM.PYCHPN ---
Psychiatric Progress Note - Psychiatric Progress Note Patient seen today, length of contact: 30 minutes Patient Chief Complaint: "I am just depressed" Problems Identified/Issues Discussed: Suicide/ homicide prevention, past psychiatric h/o, current psychiatric symptoms , medical problems, risk/benefits and alternatives of medications, medications compliance, coping strategies, substance abuse h/o, relapse prevention, importance of follow up with psychiatrist and therapist, discharge plan. Medical Problems: HNT, chronic back pain Diagnostic Results: 02/15/18 06:30 02/15/18 06:30 Lab Results 02/16/18 07:00: TSH 3rd Generation 0.41 L 02/15/18 06:30: WBC 10.2, RBC 4.78, Hgb 14.8, Hct 41.6 L, MCV 87.0, MCH 31.0, MCHC 35.6, RDW 13.2, Plt Count 347, MPV 10.0 02/15/18 06:30: RPR Nonreactive 02/15/18 06:30: Free T4 1.44, TSH 3rd Generation 0.24 L 02/15/18 06:30: Sodium 143, Potassium 4.6, Chloride 106, Carbon Dioxide 24, Anion Gap 17, BUN 19, Creatinine 0.7 L, Est GFR ( Amer) > 60, Est GFR ( Non-Af Amer) > 60, Random Glucose 102, Fasting Glucose 102, Calcium 9.7, Total Bilirubin 0.5, AST 22, ALT 32, Alkaline Phosphatase 90, Total Protein 7.9, Albumin 4.5, Globulin 3.4, Albumin/Globulin Ratio 1.3, Triglycerides 102, Cholesterol 164, LDL Cholesterol Direct 109, HDL Cholesterol 30 Vital Signs Temp Pulse Resp BP Pulse Ox 02/16/18 08:49 65 153/99 H 02/16/18 08:19 65 153/99 H 02/16/18 08:17 65 153/99 H 02/15/18 16:00 65 153/99 H 02/15/18 07:16 69 137/103 H 02/15/18 07:13 69 22 137/103 H 02/14/18 16:00 67 139/100 H 02/14/18 12:52 98 F 85 19 121/82 98 02/14/18 12:48 75 19 125/52 L 99 02/14/18 12:42 98 F DSM 5 Symptoms Update: Patient is 52-year-old single male with a psychiatric history of Depression, Opiate dependency, MJA use, multiple admissions-most recently at [facility] 01/31/18-02/06/18, multiple suicide attempts vs gestures, noncompliance with outpatient treatment and medications who was BIB EMS to [facility] due to reported depression and wishes in context of ongoing opiate use and continued grief over his mother's in Fall 2015. Patient reportedly had thoughts of jumping off his balcony, roof or bridge. as per report from the staff patient has been in good behavioral control since transfer to , at times annoyed and disrespectful, but no agitation or aggression. pt was seen at the day treatment area, pt appeared to be depressed, flat affect , reported to feel "better", at the same time very anxious about discharge. acceptable personal hygiene, pt is mancia and irritable, reported seep and appetite "better" h/o Opioid Use Disorder; Cannabis Use Disorder, but denied using recently, but admitted to smoke marijuana. as per staff pt was compliant with the medications. Impression: DSM 5 Diagnosis: Major Depression Opiate Dependency, Substance induced mood disorder MJA abuse Medication Change: Yes (Xanax 3 times a day as needed) Medical Record Reviewed: Yes Mental Status Examination - Cognitive Function Orientation: Person Memory: Intact Attention: Poor Concentration: Poor Association: WNL Fund of Knowledge: Poor (baseline) - Mood Mood: Depressed, Anxious - Affect Affect: Constricted - Formal Thought Process Formal Thought Process: No Impairment - Suicidal Ideation Suicidal Ideation: No - Homicidal Ideation Homicidal Ideation: No Goal/Treatment Plan - Goal/Treatment Plan Need for Continued Stay: Remain at risks for inpatient hospitalization, Severe depression anxiety, Discharge may exacerbated symptoms, Severe functional impairment Progress Toward Problem(s) and Goals/Treatment Plan: Milieu/structure/supportive therapy Medical consult appreciated, see medical team note for more detailed info SW consultation for discharge plan and social issues wellbutrin increased xanax will be continued remeron started Family involvement Follow up on labs Will monitor closely Pt was educated about risk/benefits and alternatives of medications, coping strategies (safety plan, suicide prevention), relapse prevention, importance of follow up with psychiatrist and therapist, stay away from drugs/alcohol/smoking Estimated Date of D/C: 02/20/18
[2018-02-21] MEDS: Metoprolol Succinate 25 mg XL Tab PO SCH (08:56)
[2018-02-21] MEDS: Lidocaine 5% Patch TD SCH (08:56)
[2018-02-21] MEDS: buPROPion SR 150 MG TABLET PO SCH (08:59)
--- NOTE | 2018-02-21 11:06 | PN ---
DATE: 02/21/2018 SUBJECTIVE: I saw him in the psychiatric floor. He is doing much better. He still wants to eat more in between meals. He is getting a hard time, but he is trying. He is doing better mentally. The plan is to be discharged on Friday. Today is Friday. MEDICATIONS: He is on Catapres, Lidoderm, Macrobid for UTI, Neurontin, Norvasc, multi ingredient ointment, Remeron, Toprol, Tylenol, Vistaril, Wellbutrin, Xanax. PHYSICAL EXAMINATION: VITAL SIGNS: He has a 98.1 temperature, 63 pulse, 127/70 blood pressure, 16 respiratory rate. HEENT: His head is atraumatic, normocephalic. HEART: Regular rate. LUNGS: Clear to auscultation. ABDOMEN: Soft. EXTREMITIES: No edema. ASSESSMENT AND PLAN: We are going to stop the antibiotics for urinary tract infection. Cultures showed no growth. He is being seen by Psychiatry. We are adjusting his medications. He had multiple issues when he got here, suicidal ideation, hypertension, chronic obstructive pulmonary disease, IV drug abuse, back pain and borderline urinary tract infection and the last urine was clean, so we are going to stop the nitrofurantoin. I encouraged him to participate and hopefully, I will feed him when he needs to be fed and hopefully, he will continue to improve to be able to be discharged on Friday. Nima Mckeon DO
--- NOTE | 2018-02-21 12:28 | PCM.PYCHPN ---
Psychiatric Progress Note - Psychiatric Progress Note Patient seen today, length of contact: 30 minutes Patient Chief Complaint: "I think I am getting better" Problems Identified/Issues Discussed: Suicide/ homicide prevention, past psychiatric h/o, current psychiatric symptoms , medical problems, risk/benefits and alternatives of medications, medications compliance, coping strategies, substance abuse h/o, relapse prevention, importance of follow up with psychiatrist and therapist, discharge plan. Medical Problems: HNT, chronic back pain Diagnostic Results: 02/15/18 06:30 02/15/18 06:30 Lab Results 02/16/18 07:00: TSH 3rd Generation 0.41 L 02/15/18 06:30: WBC 10.2, RBC 4.78, Hgb 14.8, Hct 41.6 L, MCV 87.0, MCH 31.0, MCHC 35.6, RDW 13.2, Plt Count 347, MPV 10.0 02/15/18 06:30: RPR Nonreactive 02/15/18 06:30: Free T4 1.44, TSH 3rd Generation 0.24 L 02/15/18 06:30: Sodium 143, Potassium 4.6, Chloride 106, Carbon Dioxide 24, Anion Gap 17, BUN 19, Creatinine 0.7 L, Est GFR ( Amer) > 60, Est GFR ( Non-Af Amer) > 60, Random Glucose 102, Fasting Glucose 102, Calcium 9.7, Total Bilirubin 0.5, AST 22, ALT 32, Alkaline Phosphatase 90, Total Protein 7.9, Albumin 4.5, Globulin 3.4, Albumin/Globulin Ratio 1.3, Triglycerides 102, Cholesterol 164, LDL Cholesterol Direct 109, HDL Cholesterol 30 Vital Signs Temp Pulse Resp BP Pulse Ox 02/16/18 08:49 65 153/99 H 02/16/18 08:19 65 153/99 H 02/16/18 08:17 65 153/99 H 02/15/18 16:00 65 153/99 H 02/15/18 07:16 69 137/103 H 02/15/18 07:13 69 22 137/103 H 02/14/18 16:00 67 139/100 H 02/14/18 12:52 98 F 85 19 121/82 98 02/14/18 12:48 75 19 125/52 L 99 02/14/18 12:42 98 F DSM 5 Symptoms Update: Patient is 52-year-old single male with a psychiatric history of Depression, Opiate dependency, MJA use, multiple admissions-most recently at [facility] 01/31/18-02/06/18, multiple suicide attempts vs gestures, noncompliance with outpatient treatment and medications who was BIB EMS to [facility] due to reported depression and wishes in context of ongoing opiate use and continued grief over his mother's in Fall 2015. Patient reportedly had thoughts of jumping off his balcony, roof or bridge. as per report from the staff patient has been in good behavioral control since transfer to [facility], patient does not have any agitated or aggressive or any disrespectful behavior. pt was see next to the nursing station,affect was brighter, reported to feel "better", pt has some future oriented plans to help his disabled brother after d /c. acceptable personal hygiene, pt reported seep and appetite "better" h/o Opioid Use Disorder; Cannabis Use Disorder, but denied using recently, but admitted to smoke marijuana. as per staff pt was compliant with the medications. Impression: DSM 5 Diagnosis: Major Depression Opiate Dependency, Substance induced mood disorder MJA abuse Medication Change: Yes (wellbutrin increased) Medical Record Reviewed: Yes Mental Status Examination - Cognitive Function Orientation: Person Memory: Intact Attention: Poor (improved) Concentration: Poor (improved) Association: WNL Fund of Knowledge: Poor (baseline) - Mood Mood: Depressed ("I feel better"), Anxious ("I am just anxiuos about discharge") - Affect Affect: Constricted (but more reactive and mood congruen) - Formal Thought Process Formal Thought Process: No Impairment - Suicidal Ideation Suicidal Ideation: No - Homicidal Ideation Homicidal Ideation: No Goal/Treatment Plan - Goal/Treatment Plan Need for Continued Stay: Remain at risks for inpatient hospitalization, Severe depression anxiety, Discharge may exacerbated symptoms, Severe functional impairment Progress Toward Problem(s) and Goals/Treatment Plan: Milieu/structure/supportive therapy Medical consult appreciated, see medical team note for more detailed info SW consultation for discharge plan and social issues wellbutrin increased XL 300mg po daily xanax 0.5mg po tid will be continued remeron 30mg po hs for depression and insomnia Family involvement Follow up on labs Will monitor closely Pt was educated about risk/benefits and alternatives of medications, coping strategies (safety plan, suicide prevention), relapse prevention, importance of follow up with psychiatrist and therapist, stay away from drugs/alcohol/smoking Estimated Date of D/C: 02/23/18
[2018-02-22 06:44] VITALS: O2SAT 99
[2018-02-22] MEDS: Lidocaine 5% Patch TD SCH (08:37)
[2018-02-22] MEDS: buPROPion 300 mg/24 Hours XL Tab PO SCH (08:37)
[2018-02-22] MEDS: Metoprolol Succinate 25 mg XL Tab PO SCH (08:37)
--- NOTE | 2018-02-22 10:18 | PCM.PYCHPN ---
Psychiatric Progress Note - Psychiatric Progress Note Patient seen today, length of contact: 30 minutes Patient Chief Complaint: "I think I am getting better" Problems Identified/Issues Discussed: Suicide/ homicide prevention, past psychiatric h/o, current psychiatric symptoms , medical problems, risk/benefits and alternatives of medications, medications compliance, coping strategies, substance abuse h/o, relapse prevention, importance of follow up with psychiatrist and therapist, discharge plan. Medical Problems: HNT, chronic back pain Diagnostic Results: 02/15/18 06:30 02/15/18 06:30 Lab Results 02/16/18 07:00: TSH 3rd Generation 0.41 L 02/15/18 06:30: WBC 10.2, RBC 4.78, Hgb 14.8, Hct 41.6 L, MCV 87.0, MCH 31.0, MCHC 35.6, RDW 13.2, Plt Count 347, MPV 10.0 02/15/18 06:30: RPR Nonreactive 02/15/18 06:30: Free T4 1.44, TSH 3rd Generation 0.24 L 02/15/18 06:30: Sodium 143, Potassium 4.6, Chloride 106, Carbon Dioxide 24, Anion Gap 17, BUN 19, Creatinine 0.7 L, Est GFR ( Amer) > 60, Est GFR ( Non-Af Amer) > 60, Random Glucose 102, Fasting Glucose 102, Calcium 9.7, Total Bilirubin 0.5, AST 22, ALT 32, Alkaline Phosphatase 90, Total Protein 7.9, Albumin 4.5, Globulin 3.4, Albumin/Globulin Ratio 1.3, Triglycerides 102, Cholesterol 164, LDL Cholesterol Direct 109, HDL Cholesterol 30 Vital Signs Temp Pulse Resp BP Pulse Ox 02/16/18 08:49 65 153/99 H 02/16/18 08:19 65 153/99 H 02/16/18 08:17 65 153/99 H 02/15/18 16:00 65 153/99 H 02/15/18 07:16 69 137/103 H 02/15/18 07:13 69 22 137/103 H 02/14/18 16:00 67 139/100 H 02/14/18 12:52 98 F 85 19 121/82 98 02/14/18 12:48 75 19 125/52 L 99 02/14/18 12:42 98 F DSM 5 Symptoms Update: Patient is 52-year-old single male with a psychiatric history of Depression, Opiate dependency, MJA use, multiple admissions-most recently at [facility] 01/31/18-02/06/18, multiple suicide attempts vs gestures, noncompliance with outpatient treatment and medications who was BIB EMS to [facility] due to reported depression and wishes in context of ongoing opiate use and continued grief over his mother's in Fall 2015. Patient reportedly had thoughts of jumping off his balcony, roof or bridge. as per report from the staff patient has been in good behavioral control since transfer to [facility], patient does not have any agitated or aggressive or any disrespectful behavior. pt was see next at the dinning area,affect was brighter, reported to feel "better", pt has some future oriented plans to help his disabled brother after d /c. acceptable personal hygiene, pt reported seep and appetite "better" h/o Opioid Use Disorder; Cannabis Use Disorder, but denied using recently, but admitted to smoke marijuana. as per staff pt was compliant with the medications. Impression: DSM 5 Diagnosis: Major Depression Opiate Dependency, Substance induced mood disorder MJA abuse Medication Change: Yes (wellbutrin increased) Medical Record Reviewed: Yes Mental Status Examination - Cognitive Function Orientation: Person Memory: Intact Attention: Poor (improved) Concentration: Poor (improved) Association: WNL Fund of Knowledge: Poor (baseline) - Mood Mood: Depressed ("I feel better"), Anxious ("I am just anxiuos about discharge") - Affect Affect: Constricted (but more reactive and mood congruen) - Formal Thought Process Formal Thought Process: No Impairment - Suicidal Ideation Suicidal Ideation: No - Homicidal Ideation Homicidal Ideation: No Goal/Treatment Plan - Goal/Treatment Plan Need for Continued Stay: Remain at risks for inpatient hospitalization, Severe depression anxiety, Discharge may exacerbated symptoms, Severe functional impairment Progress Toward Problem(s) and Goals/Treatment Plan: Milieu/structure/supportive therapy Medical consult appreciated, see medical team note for more detailed info SW consultation for discharge plan and social issues wellbutrin XL 300mg po daily xanax 0.5mg po tid will be continued remeron 30mg po hs for depression and insomnia Family involvement Follow up on labs Will monitor closely Pt was educated about risk/benefits and alternatives of medications, coping strategies (safety plan, suicide prevention), relapse prevention, importance of follow up with psychiatrist and therapist, stay away from drugs/alcohol/smoking Estimated Date of D/C: 02/23/18
[2018-02-23 07:26] VITALS: BP 125/89; PULSE 73; RESP 20; TEMP 97.3
[2018-02-23] MEDS: Metoprolol Succinate 25 mg XL Tab PO SCH (08:23)
[2018-02-23] MEDS: Lidocaine 5% Patch TD SCH (08:23)
[2018-02-23] MEDS: buPROPion 300 mg/24 Hours XL Tab PO SCH (08:23)
--- NOTE | 2018-02-23 08:46 | PN ---
DATE: 02/23/2018 SUBJECTIVE: I saw him in the psychiatric floor. He is very comfortable this morning. No complaints. He is going to be leaving, he tells me today. He is to take care of his brother who is at [facility]. MEDICATIONS: He is on Catapres, Lidoderm, Neurontin, Norvasc, multi ingredient ointment, Remeron, Toprol, Tylenol, Vistaril, Wellbutrin and Xanax. PHYSICAL EXAMINATION: VITAL SIGNS: He has a 97.3 temp, 73 pulse, 125/89 blood pressure, 20 respiratory rate, 99% O2 sat on room air. HEENT: His head is atraumatic, normocephalic. HEART: Regular rate. LUNGS: Clear to auscultation. ABDOMEN: Soft. EXTREMITIES: No edema. ASSESSMENT AND PLAN: He has no complaints. He is feeling better. He understands the situation. He wants help by his family. He is in good spirits. Labs were good on 02/18/2018. He is going to try and do the best he can take his medications and not come back here. He had some suicidal ideation. He had some urinary tract infection, some back pain, chronic obstructive pulmonary disease, IV drug abuse, hypertension, we discussed hanging out with those people that he was hanging out with. Get new friends. Hopefully, he will do well and stay away from bad ingredients out in the public. Nima Mckeon DO
--- NOTE | 2018-02-23 08:50 | PN ---
DATE: 02/22/2018 SUBJECTIVE: I saw Dom resting comfortably in chair, watching soccer. He is feeling better. He is eating little bit more. He is on Catapres, Lidoderm, Neurontin, Norvasc, multi ingredient ointment, Remeron, Toprol, Tylenol, Vistaril, Wellbutrin, Xanax. OBJECTIVE: VITAL SIGNS: Temperature 97.5, 70 pulse, 116/83 blood pressure, 18 respiratory rate, 99% sat on room air. HEENT: Head is atraumatic, normocephalic. Throat is moist. NECK: Supple. HEART: Regular rate. LUNGS: Clear to auscultation. ABDOMEN: Soft, nontender. Positive bowel sounds. EXTREMITIES: No edema. DATA: He had labs on 02/18/2018. He had 11 white count, hemoglobin , hematocrit 27.8. He had a 23 BUN and creatinine is 0.8. GFR is greater than 60. He did well when he was here and the plan is for him to be discharged tomorrow He is excited about that. He is to take care of his brother and he will stay out of trouble, he promises and he was here for suicidal ideation, hypertension, COPD, IV drug abuse, UTI, back pain. I do think he has improved; so, to be discharged tomorrow. Nima Mckeon DO MTDD
--- NOTE | 2018-02-23 16:48 | PCM.PYCHDC ---
Mental Status Examination - Mental Status Examination Orientation: Person, Place, Situation, Time Memory: Intact Mood: Neutral Affect: Constricted (but reactive and mood-congruent) Speech: Appropriate Attention: WNL (with improvement) Concentration: WNL (with improvement) Association: WNL Fund of Knowledge: WNL Formal Thought Process: No Impairment Description of patient's judgement and insight: Pt has improved insight into mental and medical illness, pt was compliant with medications and unit rules and regulations, pt was going to groups, was calm, cooperative, socially appropriate, no behavioral incidents, no agitation, no aggression. Psychotic Thoughts and Behaviors: Pt denied v/a/t hallucinations, denied paranoid ideations, pt does not appear to be psychotic, and thought process is goal directed. Suicidal Ideation: No Current Homicidal Ideation?: No Plan: pt adamantly denied thoughts of harming self or others denied intent or plan. Discharge Summary - Discharge Note Reason for Hospitalization: depression/suicidal ideation Psychiatric History (includes Medical, Family, Personal Hx): Multiple psychiatric admissions for depression and suicidal ideations Laboratory Data: 02/18/18 07:40 02/18/18 07:40 Lab Results 02/19/18 12:15: Urine Color Yellow, Urine Appearance Clear, Urine pH 6.0, Ur Specific [place] 1.010, Urine Protein Trace H, Urine Glucose (UA) Negative, Urine Ketones Negative, Urine Blood Trace-intact H, Urine Nitrate Negative, Urine Bilirubin Negative, Urine Urobilinogen 0.2, Ur Leukocyte Esterase Negative , Urine RBC 2 - 5, Urine WBC 0 - 2, Ur Epithelial Cells None, Urine Bacteria Many 02/18/18 07:40: Sodium 145, Potassium 4.5, Chloride 106, Carbon Dioxide 27, Anion Gap 17, BUN 23 H, Creatinine 0.8, Est GFR ( Amer) > 60, Est GFR ( Non-Af Amer) > 60, Random Glucose 93, Calcium 9.6, Total Bilirubin 0.4, AST 20, ALT 26, Alkaline Phosphatase 78, Total Protein 7.2, Albumin 4.0, Globulin 3.2, Albumin/Globulin Ratio 1.3 02/18/18 07:40: WBC 11.0 D, RBC 4.35, Hgb 13.4 L, Hct 38.5 L, MCV 88.5, MCH 30.8, MCHC 34.8, RDW 13.2, Plt Count 278, MPV 10.1 02/17/18 06:10: TSH 3rd Generation 0.69 02/17/18 06:10: Sodium 145, Potassium 4.5, Chloride 108 H, Carbon Dioxide 24, Anion Gap 18, BUN 26 H, Creatinine 0.8, Est GFR ( Amer) > 60, Est GFR ( Non-Af Amer) > 60, Random Glucose 97, Calcium 9.6, Total Bilirubin 0.2, AST 20, ALT 29, Alkaline Phosphatase 75, Total Protein 6.9, Albumin 3.9, Globulin 3.1, Albumin/Globulin Ratio 1.3 02/17/18 06:10: WBC 13.9 H D, RBC 4.42, Hgb 13.3 L, Hct 38.9 L, MCV 88.0, MCH 30.1, MCHC 34.2, RDW 13.3, Plt Count 278, MPV 10.1 02/16/18 07:00: TSH 3rd Generation 0.41 L 02/15/18 06:30: WBC 10.2, RBC 4.78, Hgb 14.8, Hct 41.6 L, MCV 87.0, MCH 31.0, MCHC 35.6, RDW 13.2, Plt Count 347, MPV 10.0 02/15/18 06:30: RPR Nonreactive 02/15/18 06:30: Free T4 1.44, TSH 3rd Generation 0.24 L 02/15/18 06:30: Sodium 143, Potassium 4.6, Chloride 106, Carbon Dioxide 24, Anion Gap 17, BUN 19, Creatinine 0.7 L, Est GFR ( Amer) > 60, Est GFR ( Non-Af Amer) > 60, Random Glucose 102, Fasting Glucose 102, Calcium 9.7, Total Bilirubin 0.5, AST 22, ALT 32, Alkaline Phosphatase 90, Total Protein 7.9, Albumin 4.5, Globulin 3.4, Albumin/Globulin Ratio 1.3, Triglycerides 102, Cholesterol 164, LDL Cholesterol Direct 109, HDL Cholesterol 30 Vital Signs Temp Pulse Resp BP Pulse Ox 02/23/18 07:24 97.3 F L 73 20 125/89 02/22/18 15:00 80 117/84 02/22/18 08:37 70 116/83 02/22/18 07:00 97.5 F L 70 18 116/82 99 07/01/18 06:42 97.5 F L 70 18 116/83 99 02/21/18 16:52 67 99/60 L 02/21/18 15:59 87 99/60 L 02/21/18 08:57 63 127/78 02/21/18 08:56 63 127/78 02/21/18 06:28 98.1 F 63 16 127/78 02/20/18 16:00 81 133/97 H 02/20/18 06:42 97.4 F L 65 18 123/84 02/19/18 16:00 83 134/83 02/19/18 06:55 98.7 F 66 19 104/62 02/18/18 17:25 83 119/87 02/18/18 15:00 83 119/87 02/18/18 08:11 65 117/78 02/18/18 08:10 65 117/78 02/18/18 06:57 97.8 F 65 20 117/78 02/17/18 17:28 78 112/67 02/17/18 09:14 60 118/81 02/17/18 09:13 60 118/81 02/17/18 09:04 60 118/81 02/17/18 07:15 97.3 F L 60 20 118/81 02/16/18 17:31 75 112/80 02/16/18 15:00 75 112/80 02/16/18 08:49 65 153/99 H 02/16/18 08:19 65 153/99 H 02/16/18 08:17 65 153/99 H 02/15/18 16:00 65 153/99 H 02/15/18 07:16 69 137/103 H 02/15/18 07:13 69 22 137/103 H 02/14/18 16:00 67 139/100 H 02/14/18 12:52 98 F 85 19 121/82 98 02/14/18 12:48 75 19 125/52 L 99 02/14/18 12:42 98 F Consultations:: List each consultation separately and include: 1. Reason for request. 2. Findings. 3. Follow-up Consultations: medical consult appreciated Please see doctor's notes for more detailed information Summary of Hospital Course include:: 1. Description of specific treatment plan utilized for patients during their course of treatmen. 2. Summarize the time- course for resolution of acute symptoms and/or regressed behaviors. 3. Describe issues identified and worked on during hospitalization. 4. Describe medication utilized. 5. Describe medical problems identified and treated. 6. Reassessment of suicide risk Summary of Hospital Course: Patient is 52-year-old single male with a psychiatric history of Depression, Opiate dependency, MJA use, multiple admissions-most recently at [facility] 01/31/18-02/06/18, multiple suicide attempts vs gestures, noncompliance with outpatient treatment and medications who was BIB EMS to [facility] due to reported depression and wishes in context of ongoing opiate use and continued grief over his mother's in Fall 2015. Patient reportedly had thoughts of jumping off his balcony, roof or bridge. in the time of admission patient presented to be depressed, hopeless,Helpless. Please see Dr. Gallardo notes for more detailed information. as per report from the staff patient has been in good behavioral control since transfer to [facility] 02/14/18. time of initial evaluation by this inspector automatic typewriter patient presented with acceptable personal hygiene, pt reported he was not able to see his psychiatrist because "had altercation", pt reported that he was feeling low mood and energy, anhedonia, hopelessness, poor sleep and appetite since discharge from [facility] a week ago. Endorses visual hallucinations of seeing his mother, but was talking about dreams that "I told my younger brother that I hate him because he could not picking supervisor my mother in my dream", pt was ruminating about his dream, pt reported both mother and brother . Patient indicates that he is no longer suicidal, but reported being suicidal prior to come to the hospital "my sister took me from the roof, I don't know if I wanted to jump off". h/o Opioid Use Disorder; Cannabis Use Disorder, but denied using recently, but admitted to smoke marijuana. as per staff pt was compliant with the medications, no behavioral outbursts. patient was stabilized on the following medication: wellbutrin XL 300mg po daily xanax 0.5mg po tid will be continued remeron 30mg po hs for depression and insomnia Patient tolerated medications well, no side effects observed or reported, aims 0 , no EPS. Over the course of this hospitalization pt was attending groups, pt also had medication management, had therapeutic milieu. Overall pt improved significantly, pt's affect became brighter, pt was less depressed, has realistic future oriented plans "now I will be in good hands, my sister is back, she will take care of me", pt also does not appear to be psychotic, or anxious, pt was socially appropriate, no behavioral issues, pts insight improved as well and soon pt deemed to be ready for discharge. At the time of the discharge pt denied been depressed, denied thoughts of harming self or others, denied psychotic symptoms, and pt does not appeared to be psychotic, denied been anxious, pt is not in imminent danger to self or others, will be following up at [facility], information about follow up appointment, time and address provided to the pt, it is patient responsibility to follow up with outpatient clinic, PMD as well as specialists (see SW note for more detailed information). In case pt will need to obtain results of studies pending at discharge pt was provided with contact information of Psychiatric Inpatient unit [phone] as well as Medical Record Department [phone]. Nicotine patch was offered Naltrexone treatment is not indicated at this time Counseling about smoking and alcohol cessation provided AA meetings as well as smoking cessation treatment program information was provided by the pt was provided with prescriptions for all of medications (please see medication reconciliation form) Pt was educated about safety plan in case of worsening of symptoms or in case of suicidal or homicidal ideation call 911 or go to the nearest ER, also was educated to take meds as prescribed and stay away from drugs, pt verbalized understanding. - Diagnosis (1) Depression Status: Chronic Priority: High - Final Diagnosis (DSM 5) Condition upon Discharge: IMPROVED Disposition: HOME/ ROUTINE Follow-up Treatment Plan: At the time of the discharge pt denied been depressed, denied thoughts of harming self or others, denied psychotic symptoms, and pt does not appeared to be psychotic, denied been anxious, pt is not in imminent danger to self or others, will be following up at [facility], information about follow up appointment, time and address provided to the pt, it is patient responsibility to follow up with outpatient clinic, PMD as well as specialists (see SW note for more detailed information). In case pt will need to obtain results of studies pending at discharge pt was provided with contact information of Psychiatric Inpatient unit [phone] as well as Medical Record Department [phone]. Nicotine patch was offered Naltrexone treatment is not indicated at this time Counseling about smoking and alcohol cessation provided AA meetings as well as smoking cessation treatment program information was provided by the [facility] pt was provided with prescriptions for all of medications (please see medication reconciliation form) Pt was educated about safety plan in case of worsening of symptoms or in case of suicidal or homicidal ideation call 911 or go to the nearest ER, also was educated to take meds as prescribed and stay away from drugs, pt verbalized understanding. Prescriptions/Medication Reconciliation: amLODIPine [Norvasc] 5 mg PO DAILY #7 tab buPROPion XL [Wellbutrin XL] 300 mg PO DAILY #14 t24 cloNIDine [Catapres] 0.1 mg PO BID #14 tab Gabapentin [Neurontin] 600 mg PO TID #45 tab Metoprolol Succinate XL [Toprol XL] 25 mg PO BRK #7 tab Mirtazapine [Remeron] 30 mg PO HS #14 tab - Smoking Cessation Smoking Cessation Medication prescribed: No Reason for not providing: pt does not want to - Antipsychotic Medications Pt discharged on 2 or more routine antipsychotic medications: No
== END 2018-02-23 10:20 | disposition home or self-care (01) | DRG 426 ==
LOC: ED 12:02 → ERH 12:36 → PSYC 13:14
PROVIDERS: ADMIT Psychiatry & Neurology Psychiatry; ATTEND Psychiatry & Neurology Psychiatry
DX: F32.9 Major depressive disorder, single episode, unspecified (principal); F11.24 Opioid dependence with opioid-induced mood disorder; J44.9 Chronic obstructive pulmonary disease, unspecified; N39.0 Urinary tract infection, site not specified; F17.210 Nicotine dependence, cigarettes, uncomplicated; F41.9 Anxiety disorder, unspecified; G47.00 Insomnia, unspecified; I10 Essential (primary) hypertension; R45.851 Suicidal ideations; M19.90 Unspecified osteoarthritis, unspecified site; K29.70 Gastritis, unspecified, without bleeding; F12.10 Cannabis abuse, uncomplicated; M54.5 Low back pain; Z91.19 Patient's noncompliance with other medical treatment and regimen